=== PATIENT | female | born 1970 | race Caucasian/White ===

== ENCOUNTER → 2025-07-26 08:38 | Outpatient (BNVA) | payer OTHER, SELFPAY | PROVIDERS: Visit Provider Emergency Medicine | DX: S39.012A Strain of muscle, fascia and tendon of lower back, initial encounter (principal); S30.0XXA Contusion of lower back and pelvis, initial encounter; W18.43XA Slipping, tripping and stumbling without falling due to stepping from one level to another, initial encounter; Z02.79 Encounter for issue of other medical certificate | CPT/HCPCS: 72100; 72220; 99203 ==